=== PATIENT | female | born 1960 | race Caucasian/White ===

== ENCOUNTER → 2018-07-22 | Outpatient (CLI) | payer OTHER ==
[~2018-07-22] MED LIST: ACTOS 45 MG45 M1 PO; APIDRA IJ; GLYBURID-METFO1 EAC3 PO; HYDROCHLOROTHIA25 M1 PO; LANTUS IJ; LEVOXYL150 MCG PO; LISINOPRIL40 MG PO; PROVERA5 MG PO
== END ==
LOC: HYPER 09:51
DX: E11.622 Type 2 diabetes mellitus with other skin ulcer (principal); L97.821 Non-pressure chronic ulcer of other part of left lower leg limited to breakdown of skin; L97.121 Non-pressure chronic ulcer of left thigh limited to breakdown of skin; I89.0 Lymphedema, not elsewhere classified; E07.89 Other specified disorders of thyroid; E66.01 Morbid (severe) obesity due to excess calories; Z79.4 Long term (current) use of insulin; Z68.44 Body mass index [BMI] 60.0-69.9, adult

== ENCOUNTER → 2018-08-03 | Outpatient (CLI) | payer OTHER | LOC: HYPER 06:59 | DX: E11.622 Type 2 diabetes mellitus with other skin ulcer (principal); L97.821 Non-pressure chronic ulcer of other part of left lower leg limited to breakdown of skin; L97.121 Non-pressure chronic ulcer of left thigh limited to breakdown of skin; E66.01 Morbid (severe) obesity due to excess calories; E07.89 Other specified disorders of thyroid; I89.0 Lymphedema, not elsewhere classified; K21.9 Gastro-esophageal reflux disease without esophagitis; Z79.4 Long term (current) use of insulin; Z68.44 Body mass index [BMI] 60.0-69.9, adult ==